=== PATIENT | male | born 1975 | race Caucasian/White ===

== ENCOUNTER 2017-06-29 12:30 | Emergency (ER) | payer BC ==
[2017-06-29 14:30] LABS: ADD MAN DIFF? NO
[2017-06-29 14:33] LABS: WHITE BLOOD COUNT 8.1 10^3/ul (4.8-10.8)
[2017-06-29 14:33] LABS: BASOPHIL # 0.1 10^3/ul (0.0-0.1); BASOPHILS % 0.7 % (0.0-2.0); EOSINOPHILS % 0.4 % (0.0-7.0); HEMATOCRIT 41.3 % (42.0-52.0); HEMOGLOBIN 14.2 g/dl (14.0-18.0); LYMPHOCYTES # 1.3 10^3/ul (0.8-2.9); LYMPHOCYTES % 16.1 % (15.0-51.0); MEAN CORPUSCULAR HEMOGLOBIN 29.2 pg (29.0-33.0); MEAN CORPUSCULAR HGB CONC 34.4 g/dl (32.0-37.0); MEAN CORPUSCULAR VOLUME 84.8 fl (82.0-101.0); MEAN PLATELET VOLUME 10.4 fl (7.4-10.4); MONOCYTE # 0.4 10^3/ul (0.3-0.9); MONOCYTES % 5.3 % (0.0-11.0); NEUTROPHIL # 6.2 10^3/ul (1.6-7.5); NEUTROPHILS % 77.1 % (39.0-77.0); PLATELET COUNT 281 10^3/UL (140-415); RED BLOOD COUNT 4.87 10^6/ul (4.70-6.10); RED CELL DISTRIBUTION WIDTH 12.4 % (11.5-14.5)
[2017-06-29 14:53] LABS: ALANINE AMINOTRANSFERASE 22 IU/L (13-69); ALBUMIN 4.7 g/dl (3.3-4.9); ALBUMIN/GLOBULIN RATIO 1.46; ALKALINE PHOSPHATASE 80 IU/L (42-121); ANION GAP 18 (8-16); ASPARTATE AMINO TRANSFERASE 22 IU/L (15-46); BILIRUBIN,INDIRECT 0.2 mg/dl (0-1.1); BILIRUBIN,TOTAL 0.2 mg/dl (0.2-1.3); BLOOD UREA NITROGEN 10 mg/dl (7-20); CALCIUM 9.6 mg/dl (8.4-10.2); CARBON DIOXIDE 27 mmol/L (21-31); CHLORIDE 102 mmol/L (97-110); CREATININE 0.86 mg/dl (0.61-1.24); GLUCOSE 92 mg/dl (70-220); POTASSIUM 4.3 mmol/L (3.5-5.1); SODIUM 143 mmol/L (135-144); TOTAL PROTEIN 7.9 g/dl (6.1-8.1)
[2017-06-29 14:55] LABS: INR 1.01; PARTIAL THROMBOPLASTIN TIME 32.8 Sec (25.0-35.0); PROTIME 13.4 Sec (11.9-14.9)
== END 2017-06-29 16:22 | disposition home or self-care (01) ==
LOC: E/R 12:30
DX: N50.812 Left testicular pain (principal)
CPT/HCPCS: 76870; 80053; 85025; 85610; 85730; 99284-25

== ENCOUNTER 2017-07-23 02:43 | Emergency (ER) | payer BC ==
[2017-07-23 03:06] LABS: URINE BLOOD (Dip) POC Trace-lysed (NEGATIVE); URINE GLUCOSE (Dip) POC Negative (NEGATIVE); URINE KETONES (Dip) POC Negative (NEGATIVE); URINE LEUKOCYTE EST (Dip) POC Negative (NEGATIVE); URINE NITRITE (Dip) POC Negative (NEGATIVE); URINE TOTAL PROTEIN POC Trace (NEGATIVE)
[2017-07-23] MEDS: morphine 4 MG/ML VIAL IV (03:41)
[2017-07-23] MEDS: ONDANSETRON 4 MG INJ IV (03:41)
[2017-07-23] MEDS ORDERED: HYDROmorphONE 0.5 MG/0.5 ML SYG (04:31)
[2017-07-23 06:10] LABS: WHITE BLOOD COUNT 7.5 10^3/ul (4.8-10.8)
[2017-07-23 06:10] LABS: ADD MAN DIFF? NO; BASOPHIL # 0.1 10^3/ul (0.0-0.1); BASOPHILS % 0.8 % (0.0-2.0); EOSINOPHILS # 0.2 10^3/ul (0.0-0.5); HEMATOCRIT 39.3 % (42.0-52.0); HEMOGLOBIN 13.5 g/dl (14.0-18.0); LYMPHOCYTES # 2.4 10^3/ul (0.8-2.9); LYMPHOCYTES % 32.2 % (15.0-51.0); MEAN CORPUSCULAR HEMOGLOBIN 29.7 pg (29.0-33.0); MEAN CORPUSCULAR HGB CONC 34.4 g/dl (32.0-37.0); MEAN CORPUSCULAR VOLUME 86.4 fl (82.0-101.0); MEAN PLATELET VOLUME 10.5 fl (7.4-10.4); MONOCYTE # 0.6 10^3/ul (0.3-0.9); MONOCYTES % 8.1 % (0.0-11.0); NEUTROPHIL # 4.3 10^3/ul (1.6-7.5); NEUTROPHILS % 56.4 % (39.0-77.0); PLATELET COUNT 280 10^3/UL (140-415); RED BLOOD COUNT 4.55 10^6/ul (4.70-6.10)
[2017-07-23 06:15] LABS: ALANINE AMINOTRANSFERASE 24 IU/L (13-69); ALBUMIN 4.3 g/dl (3.3-4.9); ALBUMIN/GLOBULIN RATIO 1.48; ALKALINE PHOSPHATASE 95 IU/L (42-121); ANION GAP 17 (8-16); ASPARTATE AMINO TRANSFERASE 25 IU/L (15-46); BILIRUBIN,INDIRECT 0.1 mg/dl (0-1.1); BILIRUBIN,TOTAL 0.1 mg/dl (0.2-1.3); BLOOD UREA NITROGEN 18 mg/dl (7-20); CALCIUM 9.2 mg/dl (8.4-10.2); CARBON DIOXIDE 32 mmol/L (21-31); CHLORIDE 101 mmol/L (97-110); CREATININE 1.04 mg/dl (0.61-1.24); GLUCOSE 94 mg/dl (70-220); LIPASE 103 U/L (23-300); POTASSIUM 3.8 mmol/L (3.5-5.1); SODIUM 146 mmol/L (135-144); TOTAL PROTEIN 7.2 g/dl (6.1-8.1)
== END 2017-07-23 05:00 | disposition home or self-care (01) ==
LOC: E/R 02:43
DX: N50.812 Left testicular pain (principal); D64.9 Anemia, unspecified; R10.9 Unspecified abdominal pain
CPT/HCPCS: 74176; 80053; 81003; 83690; 85025; 96374; 96375; 99285-25

== ENCOUNTER 2017-09-08 01:25 | Emergency (ER) | payer BC ==
[2017-09-08 01:44] LABS: URINE BLOOD (Dip) POC Trace-intact (NEGATIVE); URINE GLUCOSE (Dip) POC Negative (NEGATIVE); URINE KETONES (Dip) POC Negative (NEGATIVE); URINE LEUKOCYTE EST (Dip) POC Negative (NEGATIVE); URINE NITRITE (Dip) POC Negative (NEGATIVE); URINE TOTAL PROTEIN POC 1+ (NEGATIVE)
[2017-09-08] MEDS: IBUPROFEN 600 MG TAB PO (01:51)
== END 2017-09-08 03:24 | disposition home or self-care (01) ==
LOC: E/R 03:24
DX: B34.9 Viral infection, unspecified (principal)
CPT/HCPCS: 71045; 81003; 99283-25

== ENCOUNTER 2017-09-11 10:28 | Emergency (ER) | payer BC ==
[2017-09-11] MEDS: LORAZEPAM 2 MG INJ IV (10:54)
[2017-09-11] MEDS: METHYLPREDNISOLONE 125 MG INJ IV (10:54)
[2017-09-11] MEDS: HYDROCODONE/APAP (10/325) TAB PO (11:01)
[2017-09-11] MEDS: ALBUTEROL 0.5% (NEB) 2.5 MG/0.5 ML AMP INH (11:03)
[2017-09-11 11:04] LABS: ADD MAN DIFF? NO
[2017-09-11 11:08] LABS: BASOPHIL # 0.1 10^3/ul (0.0-0.1); BASOPHILS % 1.1 % (0.0-2.0); EOSINOPHILS # 0.1 10^3/ul (0.0-0.5); HEMATOCRIT 42.1 % (42.0-52.0); HEMOGLOBIN 14.2 g/dl (14.0-18.0); LYMPHOCYTES # 1.5 10^3/ul (0.8-2.9); LYMPHOCYTES % 31.1 % (15.0-51.0); MEAN CORPUSCULAR HEMOGLOBIN 28.5 pg (29.0-33.0); MEAN CORPUSCULAR HGB CONC 33.7 g/dl (32.0-37.0); MEAN CORPUSCULAR VOLUME 84.5 fl (82.0-101.0); MEAN PLATELET VOLUME 10.2 fl (7.4-10.4); MONOCYTE # 0.5 10^3/ul (0.3-0.9); MONOCYTES % 10.1 % (0.0-11.0); NEUTROPHIL # 2.6 10^3/ul (1.6-7.5); NEUTROPHILS % 54.3 % (39.0-77.0); PLATELET COUNT 279 10^3/UL (140-415); POSITIVE DIFF @See below; RED BLOOD COUNT 4.98 10^6/ul (4.70-6.10); RED CELL DISTRIBUTION WIDTH 11.9 % (11.5-14.5)
[2017-09-11 11:08] LABS: WHITE BLOOD COUNT 4.7 10^3/ul (4.8-10.8)
[2017-09-11 11:23] LABS: ANION GAP 17 (8-16); BLOOD UREA NITROGEN 13 mg/dl (7-20); CALCIUM 10.1 mg/dl (8.4-10.2); CARBON DIOXIDE 24 mmol/L (21-31); CHLORIDE 106 mmol/L (97-110); CREATININE 0.89 mg/dl (0.61-1.24); GLUCOSE 116 mg/dl (70-220); POTASSIUM 3.9 mmol/L (3.5-5.1); SODIUM 143 mmol/L (135-144)
[2017-09-11 11:35] LABS: TROPONIN-I < 0.010 ng/ml (0.000-0.120)
[2017-09-11 12:34] LABS: ANISOCYTOSIS 2+ (0-0); BAND NEUTROPHILS #M 0.1 10^3/ul (0.0-0.6); BAND NEUTROPHILS % (M) 3 % (0-4); EOSINOPHILS % (M) 6 % (0-7); LYMPHOCYTES #M 0.8 10^3/ul (0.8-2.9); LYMPHOCYTES % (M) 19 % (15-51); MICROCYTOSIS 2+ (0-0); MONOCYTE #M 0.4 10^3/ul (0.3-0.9); MONOCYTES % (M) 10 % (0-11); PLATELET ESTIMATE NORMAL; POLYCHROMASIA 1+ (0-0); REACTIVE LYMPHOCYTES #M 0.2 10^3/ul (0.0-0.0); REACTIVE LYMPHOCYTES% (M) 6 % (0-0); SEG NEUT #M 2.6 10^3/ul (1.6-7.5); SEGMENTED NEUTROPHILS (M) % 56 % (39-77); SMUDGE%M 5 % (0-0)
== END 2017-09-11 12:48 | disposition home or self-care (01) ==
LOC: E/R 10:28
DX: J40 Bronchitis, not specified as acute or chronic (principal); R40.2142 Coma scale, eyes open, spontaneous, at arrival to emergency department; R40.2252 Coma scale, best verbal response, oriented, at arrival to emergency department; R40.2362 Coma scale, best motor response, obeys commands, at arrival to emergency department
CPT/HCPCS: 71045; 80048; 84484; 85025; 93005; 94644; 96374; 96375; 99284-25

== ENCOUNTER 2017-10-07 18:28 | Emergency (ER) | payer BC ==
[2017-10-07] MEDS ORDERED: ONDANSETRON 4 MG INJ (18:31)
[2017-10-07] MEDS: LACTATED RINGER'S 1,000 ML IV (18:38)
[2017-10-07] MEDS: KETOROLAC 30 MG INJ IV (18:38)
[2017-10-07] MEDS: ONDANSETRON 4 MG INJ IV (18:38)
== END 2017-10-07 20:39 | disposition home or self-care (01) ==
LOC: E/R 18:28
DX: T67.5XXA Heat exhaustion, unspecified, initial encounter (principal); E86.0 Dehydration
CPT/HCPCS: 96374; 96375; 99284-25

== ENCOUNTER → 2017-11-09 | Emergency (ER) | payer BC ==
[2017-11-09] MEDS: HYDROmorphONE 1 MG/ML SYG IM (04:51)
== END | disposition home or self-care (01) ==
LOC: E/R 04:25
DX: R10.30 Lower abdominal pain, unspecified (principal); Z87.891 Personal history of nicotine dependence
CPT/HCPCS: 96372; 99284-25

== ENCOUNTER 2018-04-12 03:06 | Emergency (ER) | payer BC ==
[2018-04-12] MEDS: HYDROmorphONE 2 MG/ML SYG IM (03:31)
[2018-04-12] MEDS: SOD CHLORIDE 0.9% 1,000 ML IV (04:00)
== END 2018-04-12 06:15 | disposition home or self-care (01) ==
LOC: E/R 03:06
DX: S33.5XXA Sprain of ligaments of lumbar spine, initial encounter (principal); X58.XXXA Exposure to other specified factors, initial encounter; Y92.9 Unspecified place or not applicable
CPT/HCPCS: 96372; 99284-25

== ENCOUNTER 2018-06-16 07:51 | Emergency (ER) | payer BC ==
[2018-06-16] MEDS: ONDANSETRON (ODT) 4 MG TAB ODT (08:13)
[2018-06-16] MEDS: HYDROCODONE/APAP (10/325) TAB PO (08:14)
== END 2018-06-16 08:19 | disposition home or self-care (01) ==
LOC: E/R 07:51
DX: M54.12 Radiculopathy, cervical region (principal)
CPT/HCPCS: 99283

== ENCOUNTER 2018-07-30 10:15 | Emergency (ER) | payer BC ==
[2018-07-30] MEDS: KETOROLAC 30 MG INJ IM (10:43)
== END 2018-07-30 11:30 | disposition home or self-care (01) ==
LOC: E/R 10:15
DX: S60.052A Contusion of left little finger without damage to nail, initial encounter (principal); W23.0XXA Caught, crushed, jammed, or pinched between moving objects, initial encounter; Y92.810 Car as the place of occurrence of the external cause
CPT/HCPCS: 73130; 73130-LT; 96372; 99284-25

== ENCOUNTER 2018-08-23 06:20 | Emergency (ER) | payer BC ==
[2018-08-23] MEDS: SOD CHLORIDE 0.9% 1,000 ML IV (06:54)
[2018-08-23] MEDS: KETOROLAC 30 MG INJ IV (06:54)
[2018-08-23] MEDS: ONDANSETRON 4 MG INJ IV (06:54)
[2018-08-23] MEDS: morphine 4 MG/ML VIAL IV (08:07)
[2018-08-23] MEDS: DICYCLOMINE 10 MG CAP PO (08:21)
== END 2018-08-23 08:57 | disposition home or self-care (01) ==
LOC: FTE 08:57 → E/R 06:20
DX: B34.9 Viral infection, unspecified (principal)
CPT/HCPCS: 96361; 96374; 96375; 99284-25

== ENCOUNTER 2018-09-08 21:24 | Emergency (ER) | payer BC ==
[2018-09-08] MEDS: ONDANSETRON 4 MG INJ IV (22:04)
[2018-09-08] MEDS ORDERED: ONDANSETRON 4 MG INJ IV (22:39)
[2018-09-08] MEDS ORDERED: SODIUM CHLORIDE 0.9% 1L BAG IV* (22:39)
[2018-09-08 22:52] LABS: ADD MAN DIFF? NO
[2018-09-08 22:53] LABS: BASOPHIL # 0.1 10^3/ul (0.0-0.1); BASOPHILS % 0.7 % (0.0-2.0); EOSINOPHILS # 0.1 10^3/ul (0.0-0.5); HEMATOCRIT 38.4 % (42.0-52.0); HEMOGLOBIN 12.6 g/dl (14.0-18.0); LYMPHOCYTES # 1.9 10^3/ul (0.8-2.9); LYMPHOCYTES % 19.7 % (15.0-51.0); MEAN CORPUSCULAR HEMOGLOBIN 28.6 pg (29.0-33.0); MEAN CORPUSCULAR HGB CONC 32.8 g/dl (32.0-37.0); MEAN CORPUSCULAR VOLUME 87.3 fl (82.0-101.0); MEAN PLATELET VOLUME 10.6 fl (7.4-10.4); MONOCYTE # 0.6 10^3/ul (0.3-0.9); MONOCYTES % 5.7 % (0.0-11.0); NEUTROPHIL # 7.1 10^3/ul (1.6-7.5); NEUTROPHILS % 72.4 % (39.0-77.0); PLATELET COUNT 349 10^3/UL (140-415); RED CELL DISTRIBUTION WIDTH 12.3 % (11.5-14.5)
[2018-09-08 22:53] LABS: WHITE BLOOD COUNT 9.9 10^3/ul (4.8-10.8)
[2018-09-08] MEDS: KETOROLAC 30 MG INJ IV (22:53)
[2018-09-08 23:01] LABS: ALANINE AMINOTRANSFERASE 28 IU/L (13-69); ALBUMIN 4.4 g/dl (3.3-4.9); ALBUMIN/GLOBULIN RATIO 1.46; ALKALINE PHOSPHATASE 106 IU/L (42-121); ANION GAP 9 (5-13); ASPARTATE AMINO TRANSFERASE 32 IU/L (15-46); BILIRUBIN,INDIRECT 0.3 mg/dl (0-1.1); BILIRUBIN,TOTAL 0.3 mg/dl (0.2-1.3); BLOOD UREA NITROGEN 11 mg/dl (7-20); CALCIUM 9.7 mg/dl (8.4-10.2); CARBON DIOXIDE 26 mmol/L (21-31); CHLORIDE 106 mmol/L (97-110); CREATININE 0.76 mg/dl (0.61-1.24); Estimated GFR > 60 mL/min (>60); GLUCOSE 108 mg/dl (70-220); LIPASE 79 U/L (23-300); POTASSIUM 4.2 mmol/L (3.5-5.1); SODIUM 141 mmol/L (135-144); TOTAL PROTEIN 7.4 g/dl (6.1-8.1)
[2018-09-08 23:12] LABS: TROPONIN-I < 0.012 ng/ml (0.000-0.120)
[2018-09-08] MEDS: DICYCLOMINE 10 MG CAP PO (23:36)
== END 2018-09-09 00:06 | disposition home or self-care (01) ==
LOC: E/R 09-09 00:06
DX: J02.9 Acute pharyngitis, unspecified (principal); R05 Cough
CPT/HCPCS: 70360; 71045; 80053; 83690; 84484; 85025; 93005; 96374; 96375; 99285-25

== ENCOUNTER 2018-12-10 12:50 | Emergency (ER) | payer BC ==
[2018-12-10] MEDS: ACETAMINOPHEN 325 MG TAB PO (13:17)
[2018-12-10] MEDS: KETOROLAC 15 MG INJ IM (13:20)
== END 2018-12-10 13:42 | disposition home or self-care (01) ==
LOC: E/R 12:50
DX: S63.634A Sprain of interphalangeal joint of right ring finger, initial encounter (principal); X50.1XXA Overexertion from prolonged static or awkward postures, initial encounter; Y92.9 Unspecified place or not applicable
CPT/HCPCS: 73130; 73130-RT; 96372; 99284-25